=== PATIENT | female | born 1975 | race Caucasian/White ===

== ENCOUNTER → 2021-07-24 12:10 | Outpatient (CLI) | payer OTHER, SELFPAY ==
[2021-07-24 13:02] LABS: COVID19 -Nasal RAPID Negative (Negative)
== END ==
PROVIDERS: Referring Provider Nurse Practitioner Critical Care Medicine; Visit Provider Nurse Practitioner Critical Care Medicine
DX: Z20.822 Contact with and (suspected) exposure to COVID-19 (principal)
CPT/HCPCS: 87635